=== PATIENT | female | born 1965 | race Caucasian/White ===

== ENCOUNTER 2017-02-27 09:02 | Day surgery (SDC) | payer OTHER ==
--- NOTE | ~2017-02-27 | EGD ---
EGD REPORT [facility] [address] [address] NAME: JACQUELYN DONNELLY : 65 STATUS : REG [facility] [place] PAT#: [id number] AGE: 51 ADM/REG DATE : 02/27/17 MR#: [id number] REPORT SERV DATE: 02/27/17 DICTATED BY: DATE: REPORT STATUS : Draft TRANSCRIBED BY: [employer] DATE: 02/27/17 [facility] Patient Name: Jacquelyn Donnelly Date of : 1965 Attending MD: TOSIN AYON MD Procedure Date No Time: 02/27/2017 Procedure: Colonoscopy Indications: Screening for colorectal malignant neoplasm Referring MD: CJ TORRE Medicines: Monitored Anesthesia Care Complications: No immediate complications. Procedure: Pre-Anesthesia Assessment: - ASA Grade Assessment: III - A patient with severe systemic disease. After I obtained informed consent, the scope was passed under direct vision. Throughout the procedure, the patient's blood pressure, pulse, and oxygen saturations were monitored continuously. The PCF [id number] was introduced through the anus and advanced to the cecum, identified by appendiceal orifice and ileocecal valve. The colonoscopy was performed without difficulty. The patient tolerated the procedure well. The quality of the bowel preparation was good. Findings: The perianal and digital rectal examinations were normal. Multiple small-mouthed diverticula were found in the entire colon. No other significant abnormalities were identified in a careful examination of the remainder of the colon. There is no endoscopic evidence of inflammation, mass, polyps, ulcerations or angioectasia in the entire colon. Internal hemorrhoids were found during retroflexion and were Grade I (internal hemorrhoids that do not prolapse). No additional abnormalities were found on retroflexion. Impression: - Diverticulosis in the entire examined colon. - Internal hemorrhoids. Recommendation: - Patient has a contact number available for emergencies. The signs and symptoms of potential delayed complications were discussed with the patient. Return to normal activities tomorrow. Written discharge instructions were provided to the patient. - Patient has a contact number available for emergencies. The signs and symptoms of potential delayed EGD REPORT [address] [address] NAME: JACQUELYN DONNELLY : 65 STATUS : REG [facility] [place] PAT#: [id number] AGE: 51 ADM/REG DATE : 02/27/17 MR#: [id number] REPORT SERV DATE: 02/27/17 DICTATED BY: DATE: REPORT STATUS : Draft TRANSCRIBED BY: [employer] DATE: 02/27/17 complications were discussed with the patient. Return to normal activities tomorrow. Written discharge instructions were provided to the patient. - Discharge patient to home. - High fiber diet. - Continue present medications. - Repeat colonoscopy in 10 years for screening purposes. Procedure Code(s): --- Professional --- G0121, Colorectal cancer screening; colonoscopy on individual not meeting criteria for high risk Diagnosis Code(s): --- Professional --- K64.0, First degree hemorrhoids K57.30, Diverticulosis of large intestine without perforation or abscess without bleeding Z12.11, Encounter for screening for malignant neoplasm of colon CPT copyright 2013 [employer]. All rights reserved. The codes documented in this report are preliminary and upon [employer] review may be revised to meet current compliance requirements. TOSIN AYON MD 02/27/2017 10:05 AM This report has been signed electronically. Number of Addenda: 0 Note Initiated On: 02/27/2017 9:40 AM Scope Withdrawal Time 0 hours 11 minutes 14 seconds [address] [place] [id number]
[~2017-02-27 09:02] MED LIST: ASA5GR PO; IMITREX100 MG PO; INDE160LA PO; LEVOTHYROXIN112 MCG PO; TRULICITY1.5 MG/0.5 SQ; ZESTRIL10 MG PO; ZOCOR40 PO; ZOL100 PO
== END 2017-02-27 23:59 | disposition home health service (06) ==
LOC: DMU 09:02
PROVIDERS: Internal Medicine Gastroenterology
PROC: 0DJD8ZZ Inspection of Lower Intestinal Tract, Via Natural or Artificial Opening Endoscopic (ICD-10-PCS; principal; 2017-02-27 11:30)
DX: Z12.11 Encounter for screening for malignant neoplasm of colon (principal); K57.30 Diverticulosis of large intestine without perforation or abscess without bleeding; K64.0 First degree hemorrhoids; E03.9 Hypothyroidism, unspecified; I10 Essential (primary) hypertension; G47.33 Obstructive sleep apnea (adult) (pediatric); E78.00 Pure hypercholesterolemia, unspecified; F32.9 Major depressive disorder, single episode, unspecified; E11.9 Type 2 diabetes mellitus without complications; G43.909 Migraine, unspecified, not intractable, without status migrainosus; Z99.89 Dependence on other enabling machines and devices; Z90.710 Acquired absence of both cervix and uterus; Z98.890 Other specified postprocedural states
CPT/HCPCS: 82962